=== PATIENT | female | born 1965 | race African-American/Black ===

== ENCOUNTER 2017-08-21 05:09 | Emergency (ER) | payer OTHER ==
[~2017-08-21] VITALS: Ht 162.6 cm; Wt 49.9 kg
--- NOTE | 2017-08-21 05:25 | NUR ---
URINE SAMPLE COLLECTED
--- NOTE | 2017-08-21 05:44 | NUR ---
To bed 3 a 52 yo female patient bibself c/o right upper quad abdl dull pain x1 month, denies n/v/d. nad noted. vss. comfort measures rendered. awaiting for er md walker.
--- NOTE | 2017-08-21 05:44 | NUR ---
blood drawn by mechanical applications engineer.
[2017-08-21 05:45] LABS: BASOPHILS % (AUTO) 0.3 % (0.0-2.0); EOSINOPHILS # (AUTO) 0.1 /CMM (0.0-0.7); EOSINOPHILS % (AUTO) 1.4 % (0.0-6.0); HEMATOCRIT 44 % (33-45); HEMOGLOBIN 14.9 g/dL (11.5-14.8); LYMPHOCYTES % (AUTO) 41.5 % (20.0-44.0); MEAN CORPUSCULAR HEMOGLOBIN 31 PG (26.0-33.0); MEAN CORPUSCULAR HGB CONC 34 g/dl (31.0-36.0); MEAN CORPUSCULAR VOLUME 91 fL (82-100); MONOCYTES # (AUTO) 0.7 /CMM (0.1-1.30); NEUTROPHILS # (AUTO) 3.5 /CMM (1.8-8.9); NEUTROPHILS % (AUTO) 47.8 % (43.0-81.0); PLATELET COUNT (AUTO) 321 /CMM (150-450); RDW COEFFICIENT OF VARIATION 13.1 (11.5-15.0); RED BLOOD CELL COUNT(AUTO) 4.85 MIL/uL (4.0-5.2); WHITE BLOOD COUNT (AUTO) 7.3 K/uL (4.3-11.0)
[2017-08-21 05:48] LABS: APPEARANCE,URINE CLEAR (CLEAR); BILIRUBIN,URINE NEGATIVE (NEGATIVE); BLOOD, URINE NEGATIVE Ery/uL (NEGATIVE); COLOR,URINE YELLOW (YELLOW); KETONES,URINE NEGATIVE (NEGATIVE); LEUKOCYTE ESTERASE ,URINE NEGATIVE (NEGATIVE); NITRITE, URINE NEGATIVE (NEGATIVE); PH,URINE 6.5 (5.0-8.0); PROTEIN,URINE NEGATIVE (NEGATIVE); UGLUCOSE NEGATIVE (NEGATIVE); UROBILINOGEN,URINE 0.2 EU/dL (0.2)
[2017-08-21 05:57] LABS: CALCIUM, SERUM 9.3 mg/dL (8.5-10.1); CREATININE 0.9 mg/dL (0.6-1.3); POTASSIUM 3.8 mmol/L (3.5-5.1)
[2017-08-21 06:02] LABS: ALBUMIN 3.8 g/dL (3.4-5.0); BILIRUBIN,DIRECT 0.1 mg/dL (0.0-0.2); BILIRUBIN,TOTAL 0.8 mg/dL (0.2-1.0)
[2017-08-21 06:43] VITALS: BP 112/66
--- NOTE | 2017-08-21 08:19 | NUR ---
Gave pt RX and d/c instructions, verbalized understanding.
== END 2017-08-21 08:25 | disposition home or self-care (01) ==
LOC: ER 05:14
DX: K29.70 Gastritis, unspecified, without bleeding (principal)
CPT/HCPCS: 36415; 76700; 80048; 80076; 81001; 83690; 85025; 99285; A4606; Z7610; 81000-TC

== ENCOUNTER 2017-10-26 12:24 | Emergency (ER) | payer BC ==
[~2017-10-26] VITALS: Ht 160 cm; Wt 52.2 kg
[2017-10-26 12:36] VITALS: BP 117/84
== END 2017-10-26 13:34 | disposition home or self-care (01) ==
LOC: ER 12:26
DX: R06.4 Hyperventilation (principal)
CPT/HCPCS: 99281; A4606; Z7610; Z7502

== ENCOUNTER 2021-04-16 06:13 | Emergency (ER) | payer BC ==
[~2021-04-16] VITALS: Ht 160 cm; Wt 53.1 kg
--- NOTE | 2021-04-16 06:25 | NUR ---
PATIENT BIBSELF C/O BACK OF THE NECK PAIN THAT HAS STARTED SINCE 0230AM. PATIENT IS A/O X4, RR EVEN AND UNLABORED, NO SIGNS OF SOB NOTED. PATIENT CONNECTED TO MAT GAUGER AND POX.
[2021-04-16 07:42] VITALS: BP 125/63
--- NOTE | 2021-04-16 07:42 | NUR ---
Patient discharged to home in stable condition. Written and verbal after care instructions given. Patient verbalizes understanding of instruction.
== END 2021-04-16 07:42 | disposition home or self-care (01) ==
LOC: ER 06:13
DX: R51.9 Headache, unspecified (principal); M54.2 Cervicalgia; Z98.890 Other specified postprocedural states
CPT/HCPCS: 70450-TC

== ENCOUNTER 2024-02-25 15:48 | Emergency (ER) | payer BC ==
[~2024-02-25] VITALS: Ht 162.6 cm; Wt 49.9 kg
[2024-02-25 16:17] VITALS: BP 124/82; TEMP 98.2; O2SAT 99
[2024-02-25] MEDS ORDERED: ACET-2605 PO (16:57)
[2024-02-25] MEDS ORDERED: IBUP-1955 PO (16:57)
== END 2024-02-25 17:14 | disposition home or self-care (01) ==
LOC: ER 16:28
DX: M25.562 Pain in left knee (principal)